=== PATIENT | male | born 1985 | race American Indian/Alaskan Native ===

== ENCOUNTER 2019-05-13 11:55 | Emergency (ER) | payer SELFPAY ==
[2019-05-13 12:13] VITALS: BP 124/87
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
[2019-05-13] MEDS ORDERED: TETANUS,DIPH,PERTUSS(ACELL) VACCINE 0.5 ML SYRINGE IM ONE (12:15)
[2019-05-13] MEDS ORDERED: LIDOCAINE-MPF (1%) 10 MG/1 ML VIAL 5 ML INFILTRATI ONE (12:18)
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
== END 2019-05-13 13:05 | disposition home or self-care (01) ==
LOC: ED 11:55
DX: S71.132A Puncture wound without foreign body, left thigh, initial encounter (principal); X99.9XXA Assault by unspecified sharp object, initial encounter; Y93.89 Activity, other specified; Y92.149 Unspecified place in prison as the place of occurrence of the external cause; Y99.8 Other external cause status
CPT/HCPCS: 90471; 90715; 96372; 99282; J0696